=== PATIENT | male | born 1955 | race Caucasian/White ===

== ENCOUNTER → 2017-09-10 | Outpatient (CLI) | payer OTHER ==
[~2017-09-10] VITALS: Ht 193 cm; Wt 132.4 kg
[~2017-09-10] MED LIST: ATIVAN0.5 M1 PO; ATIVAN0.5 MG PO; ATORVASTATIN CA40 MG PO; Advair HFA 115/21 IH; CO Q-10100 MG PO; DIGOXIN250 MCG PO; DOCUSATE SODIU100 MG PO; EFFIENT10 MG PO; ENDOCET 5-3251 EACH PO; GLUCOPHAGE500 MG PO; HABITROL,NICODE21 MG TD; LEVAQUIN500 MG PO; LO-DOSE ASPIRIN81 M1 PO; METOPROLOL TART50 MG PO; MUCINEX600 MG PO; Medrol Dosepak PO; NICOTINE PATCH1 EAC1 TD; NITROSTAT0.4 MG SL; PERCOCET 5/31 TABLET PO; RANITIDINE HCL150 MG PO; RANITIDINE HCL300 MG; SPIRIVA1 INHALATI IH; VOLTAREN-XR100 MG PO; ZANTAC150 MG PO; ZITHROMAX250 MG PO; ZOFRAN4 MG PO
[2017-09-10 14:47] LABS: HEMATOCRIT 39.9 % (38.0-50.0); HEMOGLOBIN 13.1 G/DL (12.5-16.6); MCH 30.5 PG (29.0-34.0); MCHC 32.8 G/DL (30.0-36.0); MCV 92.8 FL (86-99); PLATELET COUNT 300 K/uL (156-360); RBC DIS.WIDTH-CV 13.2 % (11.8-14.6); RBC DIS.WIDTH-SD 44.7 % (39-53); WHITE BLOOD COUNT 9.3 K/uL (4.1-10.2)
[2017-09-10 15:33] LABS: INTER. NORMALIZED RATIO 1.3
[2017-09-10 15:36] LABS: PTT 28.4 SEC (25-37)
== END | disposition home or self-care (01) ==
LOC: AMB 09-09 14:30
PROVIDERS: Internal Medicine Pulmonary Disease
DX: R59.0 Localized enlarged lymph nodes (principal); J44.9 Chronic obstructive pulmonary disease, unspecified; Z85.118 Personal history of other malignant neoplasm of bronchus and lung; Z90.2 Acquired absence of lung [part of]; F17.200 Nicotine dependence, unspecified, uncomplicated; I25.10 Atherosclerotic heart disease of native coronary artery without angina pectoris; Z88.5 Allergy status to narcotic agent; Z82.49 Family history of ischemic heart disease and other diseases of the circulatory system; Z83.3 Family history of diabetes mellitus
CPT/HCPCS: 71045; 82948; 85027; 85610; 85730; 87070; 87077; 87116; 87205; 87206; 88108; 88173; J0330; J2250; J2405; J3010

== ENCOUNTER → 2017-10-01 | Outpatient (CLI) | payer MEDICARE, OTHER | END | disposition home or self-care (01) | LOC: CDC 09:15 | DX: Z01.810 Encounter for preprocedural cardiovascular examination (principal); C34.30 Malignant neoplasm of lower lobe, unspecified bronchus or lung | CPT/HCPCS: 93000 ==

== ENCOUNTER 2017-10-09 08:13 | Day surgery (SDC) | payer OTHER ==
[~2017-10-09] VITALS: Ht 193 cm; Wt 132.4 kg
[2017-10-09] MEDS ORDERED: ZYRTEC5 MG PO (08:47)
[2017-10-09 08:57] VITALS: BP 117/61
[2017-10-09] MEDS ORDERED: HYDROCODON-ACE1 EAC7 PO (12:25)
[2017-10-09] MEDS ORDERED: COLACE100 MG PO (12:25)
[2017-10-09 13:55] VITALS: BP 117/84
[2017-10-09 14:40] VITALS: BP 109/55
== END 2017-10-09 14:51 | disposition home or self-care (01) ==
LOC: SDC 08:13
PROVIDERS: Thoracic Surgery (Cardiothoracic Vascular Surgery)
PROC: 07B74ZX Excision of Thorax Lymphatic, Percutaneous Endoscopic Approach, Diagnostic (ICD-10-PCS; principal; 2017-10-09)
DX: C34.31 Malignant neoplasm of lower lobe, right bronchus or lung (principal); C77.1 Secondary and unspecified malignant neoplasm of intrathoracic lymph nodes; I25.10 Atherosclerotic heart disease of native coronary artery without angina pectoris; J44.9 Chronic obstructive pulmonary disease, unspecified; I10 Essential (primary) hypertension; K21.9 Gastro-esophageal reflux disease without esophagitis; E11.9 Type 2 diabetes mellitus without complications; F17.210 Nicotine dependence, cigarettes, uncomplicated; Z95.5 Presence of coronary angioplasty implant and graft; I25.2 Old myocardial infarction; Z79.82 Long term (current) use of aspirin; Z79.84 Long term (current) use of oral hypoglycemic drugs
CPT/HCPCS: 82948; 86850; 86900; 86901; 88305; 94640; J0330; J0690; J1170; J3010; S0020

== ENCOUNTER 2018-01-06 14:10 | Inpatient (IN) | payer OTHER ==
[~2018-01-06] VITALS: Ht 193 cm; Wt 113.6 kg
[~2018-01-06 14:10] MED LIST changes: +COLACE100 MG PO; +HYDROCODON-ACE1 EAC7 PO; +MILK OF MAGN PO; +MORPHINE S10 MG/5 ML PO; +MS CONTIN,ORAMO15 M1 PO; +MUCINEX1200 MG PO; +PROAIR HFA8.5 GM IH; +PROCHLORPERAZIN10 MG PO; +PROTONIX20 MG PO; +PROTONIX40 MG PO; +XANAX0.5 MG PO; +ZYRTEC5 MG PO
[2018-01-06 16:02] LABS: BASOPHIL (%) 0.5 % (0-1); EOSINOPHIL (%) 0.2 % (0-5); HEMATOCRIT 35.1 % (38.0-50.0); HEMOGLOBIN 11.5 G/DL (12.5-16.6); IMMATURE GRANULOCYTE (%) 1.5 % (0.0-0.7); LYMPHOCYTE (%) 20.9 % (15-42); LYMPHOCYTE COUNT 0.8 K/uL (1.0-2.8); MCH 29.8 PG (29.0-34.0); MCHC 32.8 G/DL (30.0-36.0); MCV 90.9 FL (86-99); MONOCYTE (%) 11.5 % (3-12); MONOCYTE COUNT 0.5 K/uL (0-0.8); NEUTROPHIL (%) 65.4 % (45-76); NEUTROPHIL COUNT 2.6 K/uL (1.8-6.4); NRBC (%) 0.7 /100 WBC (0-0); RBC DIS.WIDTH-CV 19.8 % (11.8-14.6); RBC DIS.WIDTH-SD 61.9 % (39-53); RED BLOOD COUNT 3.86 M/uL (4.00-5.50)
[2018-01-06 16:06] VITALS: BP 132/109
[2018-01-06 16:07] LABS: PLATELET COUNT 194 K/uL (156-360)
[2018-01-06 16:12] LABS: ALBUMIN 3.3 g/dL (3.2-4.8); CHLORIDE 113 mEq/L (99-109); POTASSIUM 3.9 mEq/L (3.7-5.4); SODIUM 150 mEq/L (136-147)
[2018-01-06 16:14] LABS: GLUCOSE 113 mg/dL (70-99); TOTAL PROTEIN 7.3 g/dL (6.4-8.3)
[2018-01-06 16:16] LABS: TOTAL BILIRUBIN 0.9 mg/dL (0.0-1.0)
[2018-01-06 16:18] LABS: ALKALINE PHOSPHATASE 75 IU/L (3-129); GFR ESTIMATE (CALCULATED) > 59 mL/min/ (58.99-99999)
[2018-01-06 16:19] LABS: UREA NITROGEN (BUN) 28 mg/dL (9-23)
[2018-01-06 16:20] LABS: AST (GOT) 21 IU/L (2-34)
[2018-01-06 16:21] LABS: ALT (GPT) 28 IU/L (3-49)
[2018-01-06 18:19] VITALS: BP 160/85
[2018-01-07 00:01] VITALS: BP 154/77
[2018-01-07 05:40] VITALS: BP 162/84
[2018-01-07 07:36] VITALS: BP 144/83
[2018-01-07 17:35] VITALS: BP 149/94
[2018-01-07 23:43] VITALS: BP 149/85
[2018-01-08 07:25] VITALS: BP 117/79
[2018-01-08 16:30] VITALS: BP 147/89
[2018-01-08 23:54] VITALS: BP 133/83
[2018-01-09 07:20] VITALS: BP 133/83
[2018-01-09 15:35] VITALS: BP 140/82
== END 2018-01-09 17:17 | disposition home or self-care (01) | DRG 392 ==
LOC: 5EAST 14:10 → ENRESERV 14:11 → 5EAST 15:27
PROVIDERS: Internal Medicine Hematology & Oncology
PROC: 0DB68ZX Excision of Stomach, Via Natural or Artificial Opening Endoscopic, Diagnostic (ICD-10-PCS; principal; 2018-01-06)
DX: R13.10 Dysphagia, unspecified (principal); C77.1 Secondary and unspecified malignant neoplasm of intrathoracic lymph nodes; C34.90 Malignant neoplasm of unspecified part of unspecified bronchus or lung; K21.0 Gastro-esophageal reflux disease with esophagitis; J44.9 Chronic obstructive pulmonary disease, unspecified; R63.4 Abnormal weight loss; R62.7 Adult failure to thrive; K29.60 Other gastritis without bleeding; I25.10 Atherosclerotic heart disease of native coronary artery without angina pectoris; R11.2 Nausea with vomiting, unspecified; I10 Essential (primary) hypertension; E11.9 Type 2 diabetes mellitus without complications; Z79.84 Long term (current) use of oral hypoglycemic drugs; I25.2 Old myocardial infarction; Z95.5 Presence of coronary angioplasty implant and graft; Z85.118 Personal history of other malignant neoplasm of bronchus and lung; Z79.82 Long term (current) use of aspirin; Z68.29 Body mass index [BMI] 29.0-29.9, adult; Z87.891 Personal history of nicotine dependence
CPT/HCPCS: 80053; 82948; 85025; 88305; 88342 TC; 94640; 94760; 94799; 96360; 96361; C9113; J0330; J1644; J2250; J2405; J7030; Q0164